=== PATIENT | male | born 1965 | race Caucasian/White ===

== ENCOUNTER 2016-04-18 11:59 | Emergency (ER) ==
[2016-04-18 12:17] LABS: MANUAL DIFF NEEDED? NO
[2016-04-18 12:26] LABS: EOS# 0.47 X1000 (0.0-0.7); EOS% 2.9 % (0.0-10.0); HEMATOCRIT 42.8 % (42.0-52.0); HEMOGLOBIN 14.7 g/dL (14.0-18.0); IMM GRAN# 0.07 X1000 (0.0-0.04); IMM GRAN% 0.4 % (0.0-0.5); LYMPH# 3.32 X1000 (1.2-3.4); LYMPH% 20.6 % (20.5-51.1); MCH 29.3 PG (27-31); MCHC 34.3 g/dL (33-37); MCV 85.3 FL (81-99); MONO# 1.39 X1000 (0.11-0.59); MONO% 8.6 % (1.7-9.3); MPV 10.1 FL (7.4-10.4); NEUT% 66.5 % (42.2-75.2); PLT 378 X1000 (130-400); RBC 5.02 XMIL (4.7-6.1)
[2016-04-18 12:42] LABS: AGAP 10; ALBUMIN 4.6 g/dL (3.5-5.0); ALKALINE PHOSPHATASE 86 U/L (32-122); BUN 18 mg/dL (8-22); CALCIUM 10.1 mg/dL (8.8-10.2); CHLORIDE 101 mmol/L (98-107); COSMO 276; GOT 51 U/L (10-34); GPT 41 U/L (10-44); POTASSIUM 3.5 mmol/L (3.5-5.1); SODIUM 137 mmol/L (136-145); TCO2 26 mmol/L (25-35)
[2016-04-18 13:04] LABS: FREE T4 1.37 ng/dL (0.93-1.70)
[2016-04-18 13:06] LABS: URINE CULTURE PL NEEDED? NO; URINE SOURCE VOIDED
[2016-04-18 13:13] LABS: BILIRUBIN URINE NEGATIVE (NEGATIVE); BLOOD URINE NEGATIVE (NEGATIVE); CLARITY CLEAR (CLEAR); COLOR YELLOW; GLUCOSE URINE NEGATIVE (NEGATIVE); LEUKOCYTES URINE TRACE (NEGATIVE); NITRITE URINE NEGATIVE (NEGATIVE); PROTEIN URINE TRACE mg/dL (NEGATIVE); SP GRAVITY URINE 1.005; UROBILINOGEN URINE NORMAL
[2016-04-18 13:16] LABS: UR AMPHETAMINES QUAL NONE DETECTED (NONE DETECT); UR BARBITUATES QUAL NONE DETECTED (NONE DETECT); UR BENZODIAZEPIN QUAL NONE DETECTED (NONE DETECT); UR CANNABINOIDS QUAL NONE DETECTED (NONE DETECT); UR COCAINE QUAL NONE DETECTED (NONE DETECT); UR MDMA QUAL NONE DETECTED (NONE DETECT); UR METHADONE QUAL NONE DETECTED (NONE DETECT); UR METHAMPHETAMINE QUAL NONE DETECTED (NONE DETECT); UR OPIATES QUAL NONE DETECTED (NONE DETECT); UR OXYCODONE QUAL NONE DETECTED (NONE DETECT); UR PCP QUAL NONE DETECTED (NONE DETECT); UR TCA QUAL NONE DETECTED (NONE DETECT)
[2016-04-18 13:26] LABS: URINE WBC <10 /HPF (<10)
--- NOTE | 2016-04-18 14:10 | PROVIDER DOCUMENTATION ---
HPI-Psychological Disorder - General Source: patient - History of Present Illness-Psych Onset/Duration: reports: just prior to arrival Timing: reports: still present Severity: reports: mild Situational problems related to:: reports: N/A Psychiatric Complaints: reports: paranoid, restlessness. denies: angry, agitated, altered mental status, anxiety, confused, depressed, frustrated, hallucinating, hostile, homicidal thoughts, impaired concentration, ingestion, injury, insomnia, irritability, , rapid pulse, suicidal ideation, tremor Substance Use: reports: denies Previous psych related hospitalizations?: Yes Patient arrived by:: police Similar Symptoms Previously?: Yes Recently seen or treated by another doctor?: No <Ruma Lundberg - Last Filed: 04/18/16 16:34> <Bony Raza - Last Filed: 04/18/16 16:49> - General Chief Complaint: Psych Stated Complaint: PSYCH Time Seen by Provider: 04/18/16 12:10 Allergies/Adverse Reactions: Patient Allergies Allergy/AdvReac Type Severity Reaction Status Date / Time Penicillins Allergy Unknown Verified 04/18/16 12:03 Home Medications: Home Medication List Medication Instructions Recorded Confirmed Last Taken Type Fluoxetine HCl [Prozac] 1 dose 04/18/16 Unknown History [place] Carbonate 1 dose BID 04/18/16 04/18/16 Unknown History - History of Present Illness-Psych Nature of Presenting Problem: Pt is 51 y/o M presents to the ED with manic episode. Pt [place] police picked him up and brought him here. Pt denies SI and HI. (Ruma Lundberg) Review of Systems - Adult - REVIEW OF SYSTEMS - ADULT Constitutional: denies: chills, fever Eyes: denies: blurred vision, double vision Ears, Nose, Mouth & Throat: denies: ear pain, nose pain, throat pain Cardiovascular: denies: chest pain, heart murmur, irregular heart rate Respiratory: denies: cough, shortness of breath, wheezing Gastrointestinal: denies: abdominal pain, diarrhea, frequent heartburn, nausea, vomiting Genitourinary: denies: dysuria, hematuria Musculoskeletal: denies: bone pain, joint pain, neck pain Integumentary: denies: hives, itching Neurological: denies: dizziness/vertigo, headache/migraines Psychiatric: denies: anxiety, depression Endocrine: reports: no symptoms reported Hematologic/Lymphatic: reports: no symptoms reported Allergic/Immunologic: reports: no symptoms reported All Other Systems: Reviewed and Negative <ToñoRuma - Last Filed: 04/18/16 16:34> Past History - Adult - PAST MEDICAL HISTORY-ADULT Review of Records: reports: Nursing Assessment Review, Medications Reviewed, Social history reviewed & non-contributory. Major Childhood Illnesses: reports: denies history Cardiovascular: reports: HTN Respiratory: reports: denies history Gastrointestinal: reports: denies history Obstetrical/Gynecological: reports: denies history Genitourinary: reports: denies history Musculoskeletal: reports: denies history Neurological: reports: denies history Psychiatric: reports: bipolar Endocrine/Immune: reports: denies history Other Conditions: reports: denies history - PRIOR SURGERIES/PROCEDURES Surgical/Procedure History: reports: reviewed, not pertinent - IMMUNIZATION STATUS Childhood Immunizations: See Nurse Assessment Flu Vaccine: See Nurse Assessment - FAMILY HISTORY Family History: reviewed, not pertinent - SOCIAL HISTORY Smoking: quit less than 1 year, cigarettes Provider spent 3-5 mins advising pt. on dangers of tobacco.: Discussed manners to quit use, and f/u contacts for add'l counseling. Substance Use: denies Living Situation: family <ToñoRuma - Last Filed: 04/18/16 16:34> Physical Exam-Psych Focus - Physical Exam-Psych Initial Vital Signs Reviewed: Yes Appearance: appropriate appearance, appropriate insight, neat, no apparent distress, no memory impairment, denies illness, alert Neurological: alert, normal mood/affect, calm, food inspector II-XII nml as tested, oriented x 3 Behavior/Eye Contact/Speech: cooperative, good eye contact, normal speech Thoughts/Hallucinations: normal thought pattern, no apparent hallucination HENMT: normocephalic/atraumatic, moist mucous membranes, normal ENT inspection, TMs normal, pharynx normal Neck: non-tender, full range of motion, supple, normal inspection Respiratory: chest non-tender, lungs clear, normal breath sounds, no pleuratic chest pain, no respiratory distress, no accessory muscle use Cardiovascular: normal peripheral pulses, regular rate, rhythm, no edema, no gallop, no JVD, no murmur Abdominal Exam: normal bowel sounds, non tender, soft, no organomegaly, no pulsatile mass Lymphatic: no adenopathy Back Exam: normal inspection, no CVA tenderness, no vertebral tenderness Extremity: normal range of motion, non-tender, normal gait, normal inspection, no pedal edema, no calf tenderness, normal capillary refill, pelvis stable Integumentary: normal color, normal turgor, warm/dry <Rmua Lundberg - Last Filed: 04/18/16 16:34> Progress - EKG 1 Time of EKG reading by physician:: 14:20 EKG Read and Signed by:: Bony Raza EKG Interpretation (*Must complete 3 of following elements*): Abnormal Rate: 57 Rhythm: sinus bradycardia Comments: otherwise normal ECG - XRAY 1 XRAY: Bilateral XRAY Study: Chest Impression: Normal XRAY Interpretation: NAD <Ruma Lundberg - Last Filed: 04/18/16 16:34> - REASSESSMENT Reassessment #1 Time Reassessed: 16:39 Status: other (Pt denies SI/HI and he was brought into ER because he was walking around [place]. Pt has been taking his Bipolar meds and his [place] level is slightly higher than normal level. I instructed him to back up for his lithium dose for [place] 600mg PO BID alternate with 600mg PO once per day. Pt will f/u with Psychiatry SOM for final dose adjustment. Pt agrees to go home and his sister agrees to pick him up frome ER. Pt strongly denies HI and SI, and promised that he will not walk aroung the railroad again.) Reassessment #2 Status: unchanged (Wale Henderson evaluated pt and decided to d/c pt home wt f/u as out patient. Pt is happy at ER and stating again and again that he is not SI/ HI and he loves this world and he is a happy person.) <Bony Raza - Last Filed: 04/18/16 16:49> - PLAN OF CARE/RESULTS Progress/Plan/Lab Results: Laboratory Tests 04/18/16 04/18/16 04/18/16 12:13 12:13 12:13 WBC RBC Hgb Hct MCV MCH MCHC RDW Std Deviation Plt Count MPV Immature Gran % (Auto) Neut % (Auto) Lymph % (Auto) [place] % (Auto) Eos % (Auto) Baso % (Auto) Immature Gran # (Auto) Neut # (Auto) Lymph # (Auto) [place] # (Auto) Eos # (Auto) Baso # (Auto) Sodium 137 Potassium 3.5 Chloride 101 Carbon Dioxide 26 Anion Gap 10 BUN 18 Creatinine 1.1 Estimated GFR/1.73 m2 > 60 BUN/Creatinine Ratio 16 Glucose 98 Calculated Osmolality 276 Calcium 10.1 Total Bilirubin 0.70 AST 51 H ALT 41 Alkaline Phosphatase 86 Total Protein 8.0 Albumin 4.6 Globulin 3.0 Albumin/Globulin Ratio 1.0 TSH 1.46 Free T4 1.37 Urine Source Urine Color Urine Clarity Urine pH Ur Specific [place] Urine Protein Urine Ketones Urine Blood Urine Nitrite Urine Bilirubin Urine Urobilinogen Urine Microscopic RBC Urine WBC Urine Microscopic WBC Urine Glucose Urine Opiates Screen Ur Oxycodone Screen Urine Methadone Screen Ur Barbituates Screen Ur Tricyclics Screen Ur Phencyclidine Scrn Ur Amphetamines Screen U Methamphetamines Scrn Urine MDMA Screen U Benzodiazepines Scrn Urine Cocaine Screen U Cannabinoids Screen Plasma/Serum Ethyl Alc 04/18/16 04/18/16 04/18/16 12:13 13:00 13:00 WBC 16.14 H RBC 5.02 Hgb 14.7 Hct 42.8 MCV 85.3 MCH 29.3 MCHC 34.3 RDW Std Deviation 14.1 Plt Count 378 MPV 10.1 Immature Gran % (Auto) 0.4 Neut % (Auto) 66.5 Lymph % (Auto) 20.6 [place] % (Auto) 8.6 Eos % (Auto) 2.9 Baso % (Auto) 1.0 H Immature Gran # (Auto) 0.07 H Neut # (Auto) 10.73 H Lymph # (Auto) 3.32 [place] # (Auto) 1.39 H Eos # (Auto) 0.47 Baso # (Auto) 0.16 Sodium Potassium Chloride Carbon Dioxide Anion Gap BUN Creatinine Estimated GFR/1.73 m2 BUN/Creatinine Ratio Glucose Calculated Osmolality Calcium Total Bilirubin AST ALT Alkaline Phosphatase Total Protein Albumin Globulin Albumin/Globulin Ratio TSH Free T4 Urine Source VOIDED Urine Color YELLOW Urine Clarity CLEAR Urine pH 7.0 Ur Specific [place] 1.005 Urine Protein TRACE A Urine Ketones NEGATIVE Urine Blood NEGATIVE Urine Nitrite NEGATIVE Urine Bilirubin NEGATIVE Urine Urobilinogen NORMAL Urine Microscopic RBC Not Reportable Urine WBC TRACE A Urine Microscopic WBC <10 Urine Glucose NEGATIVE Urine Opiates Screen NONE DETECTED Ur Oxycodone Screen NONE DETECTED Urine Methadone Screen NONE DETECTED Ur Barbituates Screen NONE DETECTED Ur Tricyclics Screen NONE DETECTED Ur Phencyclidine Scrn NONE DETECTED Ur Amphetamines Screen NONE DETECTED U Methamphetamines Scrn NONE DETECTED Urine MDMA Screen NONE DETECTED U Benzodiazepines Scrn NONE DETECTED Urine Cocaine Screen NONE DETECTED U Cannabinoids Screen NONE DETECTED Plasma/Serum Ethyl Alc Orders Category Date Time Status CHEST-2 VIEWS [RAD] Stat Exams 04/18/16 14:01 Ordered ALCOHOL BLOOD Stat Lab 04/18/16 12:13 Completed CBC WITH ELECTRONIC DIFF [HEME] Stat Lab 04/18/16 12:13 Completed COMPREHENSIVE METABOLIC PANEL [CHEM] Stat Lab 04/18/16 12:13 Completed FREE T4 Stat Lab 04/18/16 12:13 Results LITHIUM [TDM] Stat Lab 04/18/16 12:13 Received TSH Stat Lab 04/18/16 12:[address] W/POSS RFLX CULT [URINALYSIS] Stat Lab 04/18/16 13:00 [address] DRUG SCREEN [address] Stat Lab 04/18/16 13:00 Completed VITAMIN B12 Stat Lab 04/18/16 12:13 Results EKG [EKG] Stat Ther 04/18/16 14:01 Ordered Vital Signs - 24 hr 04/18/16 12:00 Temperature 98.2 F Pulse Rate 61 Respiratory 18 Rate Blood Pressure 130/97 O2 Sat by Pulse 100 Oximetry Laboratory Tests 04/18/16 04/18/16 04/18/16 12:13 12:13 12:13 WBC RBC Hgb Hct MCV MCH MCHC RDW Std Deviation Plt Count MPV Immature Gran % (Auto) Neut % (Auto) Lymph % (Auto) [place] % (Auto) Eos % (Auto) Baso % (Auto) Immature Gran # (Auto) Neut # (Auto) Lymph # (Auto) [place] # (Auto) Eos # (Auto) Baso # (Auto) Sodium 137 Potassium 3.5 Chloride 101 Carbon Dioxide 26 Anion Gap 10 BUN 18 Creatinine 1.1 Estimated GFR/1.73 m2 > 60 BUN/Creatinine Ratio 16 Glucose 98 Calculated Osmolality 276 Calcium 10.1 Total Bilirubin 0.70 AST 51 H ALT 41 Alkaline Phosphatase 86 Total Protein 8.0 Albumin 4.6 Globulin 3.0 Albumin/Globulin Ratio 1.0 TSH 1.46 Free T4 1.37 Urine Source Urine Color Urine Clarity Urine pH Ur Specific [place] Urine Protein Urine Ketones Urine Blood Urine Nitrite Urine Bilirubin Urine Urobilinogen Urine Microscopic RBC Urine WBC Urine Microscopic WBC Urine Glucose Urine Opiates Screen Ur Oxycodone Screen Urine Methadone Screen Ur Barbituates Screen Ur Tricyclics Screen Ur Phencyclidine Scrn Ur Amphetamines Screen U Methamphetamines Scrn Urine MDMA Screen U Benzodiazepines Scrn [place] Urine Cocaine Screen U Cannabinoids Screen Plasma/Serum Ethyl Alc 04/18/16 04/18/16 04/18/16 12:13 12:13 13:00 WBC 16.14 H RBC 5.02 Hgb 14.7 Hct 42.8 MCV 85.3 MCH 29.3 MCHC 34.3 RDW Std Deviation 14.1 Plt Count 378 MPV 10.1 Immature Gran % (Auto) 0.4 Neut % (Auto) 66.5 Lymph % (Auto) 20.6 [place] % (Auto) 8.6 Eos % (Auto) 2.9 Baso % (Auto) 1.0 H Immature Gran # (Auto) 0.07 H Neut # (Auto) 10.73 H Lymph # (Auto) 3.32 [place] # (Auto) 1.39 H Eos # (Auto) 0.47 Baso # (Auto) 0.16 Sodium Potassium Chloride Carbon Dioxide Anion Gap BUN Creatinine Estimated GFR/1.73 m2 BUN/Creatinine Ratio Glucose Calculated Osmolality Calcium Total Bilirubin AST ALT Alkaline Phosphatase Total Protein Albumin Globulin Albumin/Globulin Ratio TSH Free T4 Urine Source VOIDED Urine Color YELLOW Urine Clarity CLEAR Urine pH 7.0 Ur Specific [place] 1.005 Urine Protein TRACE A Urine Ketones NEGATIVE Urine Blood NEGATIVE Urine Nitrite NEGATIVE Urine Bilirubin NEGATIVE Urine Urobilinogen NORMAL Urine Microscopic RBC Not Reportable Urine WBC TRACE A Urine Microscopic WBC <10 Urine Glucose NEGATIVE Urine Opiates Screen Ur Oxycodone Screen Urine Methadone Screen Ur Barbituates Screen Ur Tricyclics Screen Ur Phencyclidine Scrn Ur Amphetamines Screen U Methamphetamines Scrn Urine MDMA Screen U Benzodiazepines Scrn [place] 1.40 H Urine Cocaine Screen U Cannabinoids Screen Plasma/Serum Ethyl Alc 04/18/16 13:00 WBC RBC Hgb Hct MCV MCH MCHC RDW Std Deviation Plt Count MPV Immature Gran % (Auto) Neut % (Auto) Lymph % (Auto) [place] % (Auto) Eos % (Auto) Baso % (Auto) Immature Gran # (Auto) Neut # (Auto) Lymph # (Auto) [place] # (Auto) Eos # (Auto) Baso # (Auto) Sodium Potassium Chloride Carbon Dioxide Anion Gap BUN Creatinine Estimated GFR/1.73 m2 BUN/Creatinine Ratio Glucose Calculated Osmolality Calcium Total Bilirubin AST ALT Alkaline Phosphatase Total Protein Albumin Globulin Albumin/Globulin Ratio TSH Free T4 Urine Source Urine Color Urine Clarity Urine pH Ur Specific [place] Urine Protein Urine Ketones Urine Blood Urine Nitrite Urine Bilirubin Urine Urobilinogen Urine Microscopic RBC Urine WBC Urine Microscopic WBC Urine Glucose Urine Opiates Screen NONE DETECTED Ur Oxycodone Screen NONE DETECTED Urine Methadone Screen NONE DETECTED Ur Barbituates Screen NONE DETECTED Ur Tricyclics Screen NONE DETECTED Ur Phencyclidine Scrn NONE DETECTED Ur Amphetamines Screen NONE DETECTED U Methamphetamines Scrn NONE DETECTED Urine MDMA Screen NONE DETECTED U Benzodiazepines Scrn NONE DETECTED [place] Urine Cocaine Screen NONE DETECTED U Cannabinoids Screen NONE DETECTED Plasma/Serum Ethyl Alc (Ruma Lundberg) Departure - Departure Time of Disposition Order: 16:33 Certified Medical Emergency: Emergent <Ruma Lundberg - Last Filed: 04/18/16 16:34> - Departure Time of Disposition Order: 16:43 Certified Medical Emergency: Emergent <Bony Raza - Last Filed: 04/18/16 16:49> - Departure DIAGNOSIS: Bizarre behavior, Bipolar 1 disorder Disposition: HOME 01 Condition: Stable Additional Instructions: ED Follow Up Instructions: Follow up with your Psychiatrist SOM for recheck your symptoms and adjust [place] level. Take [place] as verbally instructed in ER. Return to ER immediately if start to have suicidal or homicidal ideation. You have been treated by a care provider in the Emergency Department. These instructions are being provided to you so you can have an understanding of how to care for yourself upon discharge. Upon discharge from the Emergency Department, you are responsible for making arrangements for follow-up care by a physician of your choice. Take all prescribed medications as directed. Return to the Emergency Department immediately for any new or worsening symptoms. You may call the Physician Referral phone number at [phone] to obtain a list of Physicians who are taking new patients. Referrals: None,PCP [Primary Care Provider] - Forms: Return to School/Parent Work Instructions: Bipolar Disorder Attestation - Scribe Verification/Attestation Scribe:: Ruma Lundberg Acting as Scribe for:: Bony Raza Scribe documention review:: This chart was documented by a scribe and accurately reflects the service the provider performed and the decisions made by the provider. <Ruma Lundberg - Last Filed: 04/18/16 16:34> Physician Attestation
--- NOTE | 2016-04-18 14:41 | Diag Imaging Result Document ---
PROCEDURE NAME: CHEST-2 VIEWS - 04/18/2016 TWO VIEWS OF THE CHEST: FINDINGS: There is no evidence of acute cardiac or pulmonary disease. There are no previous studies. IMPRESSION: No evidence of acute disease.
--- NOTE | 2016-04-18 14:44 | EKG Report ---
Test Performed on : 04/18/2016 2:20:08 PM Test Reason : psych screen/ cardiac hx Blood Pressure : / mmHG Vent. Rate : 057 BPM Atrial Rate : 057 BPM P-R Int : 168 ms QRS Dur : 116 ms QT Int : 464 ms P-R-T Axes : 038 -08 037 degrees QTc Int : 451 ms Sinus bradycardia. Otherwise normal ECG No previous ECGs available Unconfirmed Result
[2016-04-18 17:00] VITALS: BP 140/84
== END 2016-04-18 16:58 | disposition home or self-care (01) ==
LOC: P.ED 11:59
DX: F31.9 Bipolar disorder, unspecified (principal); R46.2 Strange and inexplicable behavior; I10 Essential (primary) hypertension; Z87.891 Personal history of nicotine dependence; R94.31 Abnormal electrocardiogram [ECG] [EKG]; Z79.899 Other long term (current) drug therapy
CPT/HCPCS: 36415; 71020; 80053; 80178; 80305; 81001; 82607; 84439; 84443; 85025; 93005; 99285; G0480; 80320